=== PATIENT | male | born 1955 | race Caucasian/White ===

== ENCOUNTER 2018-11-24 22:44 | Observation (INO) | payer SELFPAY ==
[2018-11-25] MEDS ORDERED: Morphine 4 MG/ML VIAL ONE (00:45)
[2018-11-25 03:04] VITALS: BMI 24.4
[2018-11-25] MEDS ORDERED: Ondansetron ODT 4 MG TAB SL PRN (03:06)
[2018-11-25] MEDS ORDERED: Ondansetron PF 4 MG/2 ML Vial IVP PRN (03:06)
[2018-11-25] MEDS: Sodium Chloride 0.9% 1,000 ML IV SCH ×2 (03:20→12:08)
[2018-11-25] MEDS: Piperacillin/Tazobactam 4.5 GM in Sodium Chloride 0.9% 100 ML IVPB SCH ×2 (03:20→10:14)
[2018-11-25] MEDS: Morphine 4 MG/ML VIAL SLOW IVP PRN ×2 (04:17→11:52)
--- NOTE | 2018-11-25 12:57 | HP ---
CHIEF COMPLAINT: Right lower quadrant abdominal pain. HISTORY OF PRESENT ILLNESS: The patient is a 63-year-old white male. He had onset of abdominal pain about 24 hours ago. He had vomiting that is the onset of pain. He presented to the hospital in [place] for further evaluation. CT scan was obtained at that time, which revealed dilated appendix with appendicolith. White blood cell count was elevated at 14,000. He was transferred to this facility for further treatment. PAST MEDICAL HISTORY: Unremarkable. PAST SURGICAL HISTORY: Left foot surgery and surgery for a deviated septum. MEDICATIONS: None. ALLERGIES: NONE. PERSONAL AND SOCIAL HISTORY: He is engaged to be and his fiancee is present at bedside. They have no children. He lives in [place]. He does not smoke cigarettes, but he uses vaporized inhalant. He uses alcohol occasionally. He denies drug use. He works as a industrial truck driver. REVIEW OF SYSTEMS: Otherwise unremarkable. FAMILY HISTORY: Noncontributory. PHYSICAL EXAMINATION: VITAL SIGNS: Temperature 98.6, pulse 61, and blood pressure 151/77. GENERAL: Well-developed, well-nourished, pleasant white male, resting in bed, in no acute distress. He is alert and oriented x3. HEAD, EYES, EARS, NOSE, AND THROAT: Unremarkable. NECK: Supple without mass or tenderness. LUNGS: Clear to auscultation throughout. CARDIAC: Regular rate and rhythm without murmur. ABDOMEN: Soft with focal tenderness in the right abdomen with guarding in the right lower quadrant. EXTREMITIES: Unremarkable. ASSESSMENT: The patient with acute appendicitis. PLAN: Laparoscopic appendectomy. I have discussed the operation in detail with the patient as well as potential risks. He understands and agrees to proceed with surgery at this time. Job ID: [id number]
[2018-11-25] MEDS ORDERED: Fentanyl 100 MCG/2 ML VIAL ONE ×3 (13:15→15:59)
[2018-11-25] MEDS ORDERED: Bupivacaine/Epinephrine 0.25% 30 ML VIAL ONE (13:17)
[2018-11-25] MEDS ORDERED: Rocuronium Bromide 10 MG/ML (10ML VIAL) ONE (16:06)
[2018-11-25] MEDS ORDERED: Glycopyrrolate 0.2 MG/ML 5 ML SYRINGE ONE (16:06)
[2018-11-25] MEDS ORDERED: PROPOFOL 200 MG/20 ML VIAL ONE (16:06)
[2018-11-25] MEDS ORDERED: Ondansetron PF 4 MG/2 ML Vial ONE (16:06)
[2018-11-25] MEDS ORDERED: Lidocaine 1% PF 5 ML VIAL ONE (16:06)
[2018-11-25] MEDS ORDERED: Succinylcholine Chloride 20 MG/ML 10 ml SYRINGE FS ONE (16:06)
[2018-11-25] MEDS ORDERED: Dexamethasone 20 MG/5 ML VIAL ONE (16:06)
[2018-11-25 17:18] VITALS: TEMP 97.8
[2018-11-25 17:57] VITALS: BP 145/87
[2018-11-25] MEDS ORDERED: traMADol HCl 50 MG TAB PO SCH (18:30)
--- NOTE | 2018-11-25 21:01 | OP ---
DATE OF PROCEDURE: 11/25/2018 PREOPERATIVE DIAGNOSIS: Acute appendicitis. POSTOPERATIVE DIAGNOSIS: Acute appendicitis with findings of early appendicitis and definite appendicolith. OPERATION PERFORMED: Laparoscopic appendectomy. ANESTHESIA: General endotracheal. INDICATIONS: The patient is a 63-year-old white male. He presented with right lower quadrant abdominal pain. CT scan was obtained with findings consistent with appendicitis. The patient is taken to the operative room at this time for laparoscopic appendectomy. DESCRIPTION OF OPERATION: Informed consent was obtained. The patient was taken to the operating room where general endotracheal anesthesia was obtained with the patient in supine position. Abdomen was prepped with ChloraPrep and draped in sterile fashion. A Golden catheter was placed. Local anesthetic was infiltrated using 0.25% Marcaine with epinephrine. A 5-mm infraumbilical incision was created through which a Veress needle was passed into the peritoneal cavity and pneumoperitoneum was established using carbon dioxide up to pressure of 15 mmHg. A 5-mm trocar port was passed through the same incision. Laparoscopic camera was passed through this port. Under direct vision, 2 additional ports were placed including a 5-mm left lower quadrant port and a 12-mm suprapubic port. Attention was turned to the right lower quadrant. The appendix was quickly identified. The base was small and decompressed without inflammation. The distal appendix was substantially dilated, but with relatively minimal inflammation. The mesoappendix was grasped and taken down using electrocautery. The appendiceal base was skeletonized. The appendix was divided at its base between PDS Endoloop ties. The appendiceal stump was cauterized. The appendix was placed in a specimen retrieval sac and removed through the suprapubic port. The fascia was closed with 0 Vicryl suture using a GraNee needle. As it was relatively mild inflammation of the appendix, I inspected the rest of the abdomen. The liver was somewhat enlarged, but without cirrhotic or fatty changes. The gallbladder was a light pale blue color, but appeared to be distended. It was without inflammation. The omentum was nonadherent to any intraabdominal structures. The small bowel was run retrograde for 100 cm without any abnormal finding. The pelvis was inspected. There was a small amount of clear fluid within the pelvis that was irrigated and aspirated. All ports and instruments were removed under direct vision. Pneumoperitoneum was carefully evacuated. 0.25% Marcaine with epinephrine was infiltrated at each port site. Skin edges approximated with 4-0 Monocryl subcuticular suture. Dermabond was placed externally. There were no complications. The patient tolerated the procedure well and was taken to recovery room in stable condition. Job ID: [id number]
== END 2018-11-25 18:44 | disposition home or self-care (01) ==
LOC: ERS 22:44 → SURG B 11-25 02:35
PROVIDERS: ADMIT Specialist; ATTEND Specialist
PROC: 0DTJ4ZZ Resection of Appendix, Percutaneous Endoscopic Approach (ICD-10-PCS; principal; 2018-11-25)
DX: K35.80 Unspecified acute appendicitis (principal); F17.290 Nicotine dependence, other tobacco product, uncomplicated; I10 Essential (primary) hypertension; B19.20 Unspecified viral hepatitis C without hepatic coma
CPT/HCPCS: 88304; 96361; 96365; 96366; 96374; 96375; 96376; G0378; J1100; J2001; J2270; J2405; J2543; J2704; J3010; J3490